=== PATIENT | male | born 1950 | race Caucasian/White ===

== ENCOUNTER → 2016-12-30 | Outpatient (CLI) | payer OTHER ==
[~2016-12-30] MED LIST: FLOMAX 0.4 MG0.4 MG PO; LISINOPRIL30 MG PO; NORCO 5-325 TA1 EACH PO; OMEPRAZOLE20 M1 PO; PRAVASTATIN SOD80 MG PO; SPIRONOLACTONE25 MG PO; VANCOCIN 125MG/2.5ML PO
== END ==
LOC: KOH-I 11:30 → EMI 13:00
DX: C34.90 Malignant neoplasm of unspecified part of unspecified bronchus or lung (principal); R90.89 Other abnormal findings on diagnostic imaging of central nervous system
CPT/HCPCS: 70551

== ENCOUNTER → 2017-01-01 | Day surgery (SDC) | payer OTHER ==
[~2017-01-01] VITALS: Ht 182.9 cm; Wt 109.8 kg
== END | disposition home or self-care (01) ==
LOC: OR 07:06
PROVIDERS: Surgery
PROC: 05HM33Z Insertion of Infusion Device into Right Internal Jugular Vein, Percutaneous Approach (ICD-10-PCS; 2017-01-01)
PROC: B513YZA Fluoroscopy of Right Jugular Veins using Other Contrast, Guidance (ICD-10-PCS; 2017-01-01)
PROC: 0JH63XZ Insertion of Tunneled Vascular Access Device into Chest Subcutaneous Tissue and Fascia, Percutaneous Approach (ICD-10-PCS; principal; 2017-01-01 09:15)
DX: C34.91 Malignant neoplasm of unspecified part of right bronchus or lung (principal); I87.8 Other specified disorders of veins; I10 Essential (primary) hypertension; J45.909 Unspecified asthma, uncomplicated; J44.9 Chronic obstructive pulmonary disease, unspecified; K21.9 Gastro-esophageal reflux disease without esophagitis; K44.9 Diaphragmatic hernia without obstruction or gangrene; Z87.891 Personal history of nicotine dependence; Z88.0 Allergy status to penicillin; Z88.1 Allergy status to other antibiotic agents; Z88.8 Allergy status to other drugs, medicaments and biological substances; Z79.899 Other long term (current) drug therapy; Z98.890 Other specified postprocedural states
CPT/HCPCS: 71010; 77001; C1769; C1788; J0690; J1335; J1644; J2250; J3010; J3370; J7030; J7050; J7120

== ENCOUNTER 2017-03-05 15:33 | Emergency (ER) | payer OTHER ==
[~2017-03-05 15:33] MED LIST changes: -FLOMAX 0.4 MG0.4 MG PO; -VANCOCIN 125MG/2.5ML PO
[2017-03-05 17:32] LABS: HEMOGLOBIN 12.5 gm/dl (14.0-17.5); RED BLOOD COUNT 4.33 M/UL (4.20-5.50); WHITE BLOOD COUNT 3.1 K/UL (4.5-11.0)
== END 2017-03-05 19:03 | disposition home or self-care (01) ==
LOC: ER1 15:33
PROVIDERS: Radiology Radiation Oncology
DX: A08.4 Viral intestinal infection, unspecified (principal); K44.9 Diaphragmatic hernia without obstruction or gangrene; C34.90 Malignant neoplasm of unspecified part of unspecified bronchus or lung; F17.200 Nicotine dependence, unspecified, uncomplicated
CPT/HCPCS: 36415; 71010; 80053; 82150; 82550; 82553; 83690; 83874; 84484; 85025; 85610; 85730; 96374; 96375; 99284; J2270; J2405; J7030

== ENCOUNTER 2017-03-08 09:36 | Inpatient (IN) | payer OTHER ==
[~2017-03-08] VITALS: Ht 182.9 cm; Wt 108.9 kg
[2017-03-08 11:51] LABS: RED BLOOD COUNT 4.84 M/UL (4.20-5.50); WHITE BLOOD COUNT 7.7 K/UL (4.5-11.0)
[2017-03-08] MEDS ORDERED: FLOMAX 0.4 MG0.4 MG PO (17:50)
[2017-03-09 04:49] LABS: WHITE BLOOD COUNT 5.9 K/UL (4.5-11.0)
[2017-03-09 04:52] LABS: RED BLOOD COUNT 3.7 M/UL (4.20-5.50)
[2017-03-09 04:53] LABS: HEMOGLOBIN 10.5 gm/dl (14.0-17.5)
[2017-03-09 05:07] LABS: BUN/CREATININE RATIO 19 (0-10)
--- NOTE | 2017-03-09 16:59 | NUR ---
CURRENTLY RESTING IN FOWLERS. IV PATENT WITH NO S/S OF INFILTRATION. LIFELINE WITHIN REACH. WILL CONTINUE TO MONITOR.
[2017-03-10 06:14] LABS: HEMOGLOBIN 10.8 gm/dl (14.0-17.5); RED BLOOD COUNT 3.83 M/UL (4.20-5.50)
[2017-03-10 06:47] LABS: BUN/CREATININE RATIO 14 (0-10)
[2017-03-12] MEDS ORDERED: VANCOCIN 125MG/2.5ML PO (15:05)
== END 2017-03-12 16:45 | disposition home or self-care (01) | DRG 388 ==
LOC: ER1 09:36 → ZEROF 13:28 → MED SURG 4 14:23
PROVIDERS: Internal Medicine; Radiology Radiation Oncology; ADMIT Internal Medicine
PROC: 0D9670Z Drainage of Stomach with Drainage Device, Via Natural or Artificial Opening (ICD-10-PCS; principal; 2017-03-08)
DX: K56.60 Unspecified intestinal obstruction (principal); E43 Unspecified severe protein-calorie malnutrition; C34.31 Malignant neoplasm of lower lobe, right bronchus or lung; E87.1 Hypo-osmolality and hyponatremia; N17.9 Acute kidney failure, unspecified; A04.7 Enterocolitis due to Clostridium difficile; I12.9 Hypertensive chronic kidney disease with stage 1 through stage 4 chronic kidney disease, or unspecified chronic kidney disease; N18.3 Chronic kidney disease, stage 3 (moderate); E86.1 Hypovolemia; R11.2 Nausea with vomiting, unspecified; E78.5 Hyperlipidemia, unspecified; J44.9 Chronic obstructive pulmonary disease, unspecified; K21.9 Gastro-esophageal reflux disease without esophagitis; Z88.0 Allergy status to penicillin; Z88.1 Allergy status to other antibiotic agents; Z88.8 Allergy status to other drugs, medicaments and biological substances; Z79.899 Other long term (current) drug therapy; Z87.891 Personal history of nicotine dependence; N40.0 Benign prostatic hyperplasia without lower urinary tract symptoms
CPT/HCPCS: 36415; 74000; 74022; 74250; 80048; 80053; 81001; 82150; 83605; 83690; 83735; 85025; 85027; 86140; 87040; 87086; 89055; 93005; 96361; 96374; 99284; J2060; J2405; J7030; Q9963